=== PATIENT | male | born 1960 | race Caucasian/White ===

== ENCOUNTER 2016-08-22 08:23 | Emergency (ER) | payer OTHER ==
[~2016-08-22] VITALS: Ht 177.8 cm; Wt 77.1 kg
[~2016-08-22 08:23] MED LIST: BACDS PO; LAC PO; LEV500 PO; NOR10T PO
[2016-08-22 10:23] VITALS: BP 130/79
== END 2016-08-22 10:23 | disposition home or self-care (01) ==
LOC: ED 08:23
DX: L03.115 Cellulitis of right lower limb (principal); M79.671 Pain in right foot
CPT/HCPCS: J1885